=== PATIENT | female | born 1990 | race Caucasian/White ===

== ENCOUNTER 2018-04-28 21:53 | Emergency (ER) | payer OTHER ==
[~2018-04-28] VITALS: Ht 160 cm; Wt 54.4 kg
[~2018-04-28 21:53] MED LIST: ALBU0.0912 IH
[2018-04-28 22:01] VITALS: BP 146/96
--- NOTE | 2018-04-28 22:10 | NUR ---
Karina frost in ED - 04/28/18 at 2219 by [email or web address] pt triaged and sent to matilda meneses at this time, urine cup provided.
[2018-04-28 22:14] VITALS: BP 140/86
--- NOTE | 2018-04-28 22:16 | NUR ---
TO LOBBY A/W BED, TONY AGUIRRE NOTED
--- NOTE | 2018-04-28 23:21 | NUR ---
MOTHER AMBULATED TO BED 11 WITH VSS.
--- NOTE | 2018-04-28 23:21 | NUR ---
PT PRESENTS TO ED WITH C/O RASH OVER FACE, NECK, TRUNK, BILAT UPPER EXTREMITIES, AND GROIN. MULTIPLE RED SCABBED RAISED AREAS. NO DRAINAGE. NO PAIN. AFEBRILE. VSS. C/O SEVERE ITCHING. NO KNOWN CONTACT WITH ALLERGENS. ER MD AWARE. CONTINUE TO MONITOR.
[2018-04-29] MEDS ORDERED: diphenhydrAMINE 50 MG CAP PO ONE (00:10)
[2018-04-29 01:14] VITALS: BP 130/72
--- NOTE | 2018-04-29 01:19 | NUR ---
Patient discharged with v/s stable. Written and verbal after care instructions given and explained. Patient alert, oriented and verbalized understanding of instructions. Ambulatory with steady gait. All questions addressed prior to discharge. ID band removed. Patient advised to follow up with PMD. Rx of BENADRYL given. Patient educated on indication of medication including possible reaction and side effects. Opportunity to ask questions provided and answered.
== END 2018-04-29 01:14 | disposition home or self-care (01) ==
LOC: MED 21:53
DX: R21 Rash and other nonspecific skin eruption (principal); J45.909 Unspecified asthma, uncomplicated; Z88.5 Allergy status to narcotic agent; Z79.899 Other long term (current) drug therapy
CPT/HCPCS: 99283; Q0163

== ENCOUNTER 2018-10-27 07:50 | Emergency (ER) | payer OTHER ==
[~2018-10-27] VITALS: Ht 160 cm; Wt 52.2 kg
[2018-10-27 07:54] VITALS: BP 116/92
[2018-10-27 08:46] VITALS: BP 116/92
== END 2018-10-27 08:45 | disposition home or self-care (01) ==
LOC: MED 07:50
DX: L03.116 Cellulitis of left lower limb (principal); J45.909 Unspecified asthma, uncomplicated; Z88.5 Allergy status to narcotic agent; Z79.899 Other long term (current) drug therapy
CPT/HCPCS: 99283

== ENCOUNTER 2018-10-29 03:57 | Emergency (ER) | payer OTHER ==
[~2018-10-29] VITALS: Ht 162.6 cm; Wt 52.2 kg
[2018-10-29 04:04] VITALS: BP 139/101
--- NOTE | 2018-10-29 04:08 | NUR ---
PT AMBULATED TO BED 4.
--- NOTE | 2018-10-29 04:16 | NUR ---
PT C/O LT LEG PAIN AFTER SPIDER BITE. CELLULITIS ON LT LEG W/ YELLOW PUS. /10 ACHING PAIN TO TOUCH. +CMS. PT WAS SEEN ON 10/27 FOR SPIDER BITE AND GIVEN KEFLEX. STATES SHE SQUEEZED THE BITE AND AN ABUNDANCE OF WHITE PUS CAME OUT. RR EVEN AND UNLABORED. PT CALM AND PLEASANT IN ROOM SITTING ON BED. MEDHX: ASTHMA ALLERGIES: CODEINE
[2018-10-29] MEDS ORDERED: IBUPROFEN 800 MG TAB PO ONE (04:40)
[2018-10-29] MEDS ORDERED: SULFAMETH/TRIMETH DS 800/160MG 1 TAB PO ONE (04:40)
--- NOTE | 2018-10-29 04:56 | NUR ---
PT RESTING IN BED, VSS AT THIS TIME
--- NOTE | 2018-10-29 05:06 | NUR ---
Patient discharged with v/s stable. Written and verbal after care instructions given and explained. Patient alert, oriented and verbalized understanding of instructions. Ambulatory with to home. All questions addressed prior to discharge. ID band removed. Patient advised to follow up with PMD. Rx of MOTRIN 800 MG AND BACTRIM 160 MG PO given. Patient educated on indication of medication including possible reaction and side effects. Opportunity to ask questions provided and answered. 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
[2018-10-29 05:07] VITALS: BP 139/101
== END 2018-10-29 05:06 | disposition home or self-care (01) ==
LOC: MED 03:57
DX: S80.862A Insect bite (nonvenomous), left lower leg, initial encounter (principal); L03.116 Cellulitis of left lower limb; R03.0 Elevated blood-pressure reading, without diagnosis of hypertension; J45.909 Unspecified asthma, uncomplicated; Z88.5 Allergy status to narcotic agent; Z79.899 Other long term (current) drug therapy; W57.XXXA Bitten or stung by nonvenomous insect and other nonvenomous arthropods, initial encounter; Y93.89 Activity, other specified; Y92.89 Other specified places as the place of occurrence of the external cause; Y99.8 Other external cause status
CPT/HCPCS: 99283

== ENCOUNTER 2019-02-25 12:39 | Emergency (ER) | payer OTHER ==
[~2019-02-25] VITALS: Ht 160 cm; Wt 49.9 kg
--- NOTE | 2019-02-25 12:43 | NUR ---
pt ambulated to bed 07
[2019-02-25] MEDS ORDERED: ALBUTEROL SULFATE/IPRATROPIU 3 ML SOL IH ONE (12:45)
[2019-02-25 12:46] VITALS: BP 109/71
--- NOTE | 2019-02-25 12:48 | NUR ---
28/F TO ED WITH SOB SUDDEN ONSET LAST NIGHT. PT REPORTS USING LAST BIT OF VENTOLIN INHALER WITH MINIMAL RELIEF. WHEEZES HEARD BILATERALLY INSIPIRATORY AND EXPIRATORY. DR DE SOUZA AWARE. VERBAL ORDER FOR BREATHING TX RECD.
[2019-02-25] MEDS ORDERED: predniSONE 20 MG TAB PO ONE (13:15)
--- NOTE | 2019-02-25 13:25 | NUR ---
PT REPORTS RELIEF AFTER BREATHING TX.
[2019-02-25 13:38] VITALS: BP 124/77
--- NOTE | 2019-02-25 13:38 | NUR ---
Patient discharged with v/s stable. Written and verbal after care instructions given and explained. Patient alert, oriented and verbalized understanding of instructions. Ambulatory with steady gait. All questions addressed prior to discharge. ID band removed. Patient advised to follow up with PMD. Rx of Albuterol and Prednisone given. Patient educated on indication of medication including possible reaction and side effects. Opportunity to ask questions provided and answered.
== END 2019-02-25 13:38 | disposition home or self-care (01) ==
LOC: MED 12:39
DX: J45.901 Unspecified asthma with (acute) exacerbation (principal); Z88.5 Allergy status to narcotic agent; Z79.899 Other long term (current) drug therapy
CPT/HCPCS: 94640; 99283; J7620

== ENCOUNTER 2019-03-15 11:37 | Emergency (ER) | payer OTHER ==
[~2019-03-15] VITALS: Ht 157.5 cm; Wt 55.8 kg
[2019-03-15 11:46] VITALS: BP 148/86
[2019-03-15] MEDS ORDERED: hydrOXYzine HCL 25 MG TAB PO ONE (12:25)
[2019-03-15] MEDS ORDERED: DEXAMETHASONE 10 MG/ML VIAL IM ONE (12:25)
--- NOTE | 2019-03-15 12:50 | NUR ---
PT C/O MILD RT EYE PAIN AFTER ACCIDENTLY GETTING ANTI-ITCH CREAM INTO EYE. ECZEMA NOTICED ALL OVER THE BODY. PATIENT STATES PAIN OF 1/10 AT THIS TIME; VSS; PATIENT POSITIONED FOR COMFORT; HOB ELEVATED; BEDRAILS UP X1; BED DOWN. ER MD MADE AWARE OF PT STATUS.
--- NOTE | 2019-03-15 14:03 | NUR ---
PT STATES 0/10 PAIN, NADR
[2019-03-15 14:05] VITALS: BP 134/79
--- NOTE | 2019-03-15 14:05 | NUR ---
Patient discharged with v/s stable. Written and verbal after care instructions given and explained. Patient alert, oriented and verbalized understanding of instructions. Ambulatory with steady gait. All questions addressed prior to discharge. ID band removed. Patient advised to follow up with PMD. Rx of PREDNISONE AND ATARAX given. Patient educated on indication of medication including possible reaction and side effects. Opportunity to ask questions provided and answered. PT GIVEN EXCUSE FOR WORK THROUGH MAR 17 2019
== END 2019-03-15 14:05 | disposition home or self-care (01) ==
LOC: MED 11:37
DX: L98.9 Disorder of the skin and subcutaneous tissue, unspecified (principal); H57.11 Ocular pain, right eye; J45.909 Unspecified asthma, uncomplicated; Z79.899 Other long term (current) drug therapy; Z88.5 Allergy status to narcotic agent
CPT/HCPCS: 96372; 99283; J1100

== ENCOUNTER 2020-06-11 12:07 | Emergency (ER) | payer OTHER ==
[~2020-06-11] VITALS: Ht 160 cm; Wt 52.2 kg
[2020-06-11 12:15] VITALS: BP 118/71
--- NOTE | 2020-06-11 12:30 | NUR ---
29 Y/O M BIB SELF FROM HOME, PT PRESENTS TO ED WITH BILATERAL HAND RASH/PALE/BUMPS AFTER PUTTING ON GLOVES AT WORK TODAY. PT UNSURE IF SHE HAS LATEX ALLERGY. PT HAS APPOINTMENT WITH PCP TOMORROW, BUT WAS SEEN AT [facility]RG[facility] FOR SAME ISSUE AND WAS INSTRUCTED TO COME HERE. DENIES N/V/D; SKIN IS PALE, WITH REDNESS IN SOME AREAS, BUMPS ON BILATERAL HANDS. AAOX4 WITH EVEN AND STEADY GAIT; LUNGS CLEAR BL; HR EVEN AND REGULAR; PT DENIES ANY FEVER, CP, SOB, OR COUGH AT THIS TIME; PATIENT STATES PAIN OF 0/10 AT THIS TIME; VSS; PATIENT POSITIONED FOR COMFORT; HOB ELEVATED; BEDRAILS UP X2; BED DOWN. ER MD MADE AWARE OF PT STATUS. PMH: ECZEMA, ASTHMA MED: BENADRYL, VENOLIN ALLERGY: CODEINE, POSSIBLE LATEX
[2020-06-11] MEDS ORDERED: ACETAMINOPHEN EXTRA STRENGTH 500 MG TAB PO ONE (12:55)
[2020-06-11 14:40] VITALS: BP 118/71
[2020-06-11] MEDS ORDERED: CLIN-178 PO (14:40)
[2020-06-11] MEDS ORDERED: ELIMC TP (14:42)
--- NOTE | 2020-06-11 14:42 | NUR ---
Patient does not wish to proceed with medical care recommended by EVER WHITNEY. Patient given information related to possible complications, up to and including , which could occur as a result of leaving hospital at this time. Patient verbalizes understanding of risks involved leaving against medical advice. Patient has signed AMA form.
== END 2020-06-11 14:42 | disposition left against medical advice (07) ==
LOC: MED 12:07
DX: R21 Rash and other nonspecific skin eruption (principal); J45.909 Unspecified asthma, uncomplicated; Z79.899 Other long term (current) drug therapy; Z88.5 Allergy status to narcotic agent; Z98.890 Other specified postprocedural states
CPT/HCPCS: 99283; Q0163

== ENCOUNTER 2020-09-07 14:06 | Emergency (ER) | payer OTHER ==
[~2020-09-07] VITALS: Ht 160 cm; Wt 49.9 kg
[~2020-09-07 14:06] MED LIST changes: +CLIN-178 PO; +ELIMC TP
[2020-09-07 14:35] VITALS: BP 132/85
--- NOTE | 2020-09-07 14:46 | NUR ---
Patient to lobby for open available bed.
[2020-09-07] MEDS ORDERED: HYD1C TP (15:24)
[2020-09-07] MEDS ORDERED: CEPH-588 PO (15:24)
--- NOTE | 2020-09-07 15:25 | NUR ---
No nursing interventions rendered.
--- NOTE | 2020-09-07 15:30 | NUR ---
Patient discharged with v/s stable. Written and verbal after care instructions given and explained. Patient alert, oriented and verbalized understanding of instructions. Ambulatory with steady gait. All questions addressed prior to discharge. ID band removed. Patient advised to follow up with PMD. Rx of Cephalexin and Hydrocortisone cream given. Patient educated on indication of medication including possible reaction and side effects. Opportunity to ask questions provided and answered.
== END 2020-09-07 15:30 | disposition home or self-care (01) ==
LOC: MED 14:06
DX: L20.9 Atopic dermatitis, unspecified (principal); L03.115 Cellulitis of right lower limb
CPT/HCPCS: 99281; 99283

== ENCOUNTER 2020-09-27 15:23 | Emergency (ER) | payer OTHER ==
[~2020-09-27] VITALS: Ht 160 cm; Wt 49.9 kg
[~2020-09-27 15:23] MED LIST changes: +CEPH-588 PO; -CLIN-178 PO; +CLIN300C52 PO; +HYD1C TP
[2020-09-27 15:29] VITALS: BP 139/74
--- NOTE | 2020-09-27 15:34 | NUR ---
PT TO LOBBY.
[2020-09-27] MEDS ORDERED: KEN.1O TP (15:52)
[2020-09-27] MEDS ORDERED: DIPH25TA53 PO (15:52)
--- NOTE | 2020-09-27 16:10 | NUR ---
Patient discharged with v/s stable. Written and verbal after care instructions given and explained. Patient alert, oriented and verbalized understanding of instructions. Ambulatory with steady gait. All questions addressed prior to discharge. ID band removed. Patient advised to follow up with PMD. Rx of Benadry and Kenalog given. Patient educated on indication of medication including possible reaction and side effects. Opportunity to ask questions provided and answered.
== END 2020-09-27 16:10 | disposition home or self-care (01) ==
LOC: MED 15:23
DX: R21 Rash and other nonspecific skin eruption (principal); J45.909 Unspecified asthma, uncomplicated; Z88.5 Allergy status to narcotic agent; Z79.899 Other long term (current) drug therapy
CPT/HCPCS: 99283

== ENCOUNTER 2020-11-05 08:16 | Emergency (ER) | payer OTHER ==
[~2020-11-05] VITALS: Ht 160 cm; Wt 54.4 kg
[~2020-11-05 08:16] MED LIST changes: +DIPH25TA53 PO; +KEN.1O TP
[2020-11-05 08:24] VITALS: BP 155/113
[2020-11-05] MEDS ORDERED: NAPR-1704 PO (09:44)
[2020-11-05] MEDS ORDERED: CLIN300C2 PO (09:44)
[2020-11-05 10:03] VITALS: BP 139/94
== END 2020-11-05 10:03 | disposition home or self-care (01) ==
LOC: MED 08:16
DX: K04.7 Periapical abscess without sinus (principal); L03.211 Cellulitis of face; I10 Essential (primary) hypertension; J45.909 Unspecified asthma, uncomplicated; Z79.1 Long term (current) use of non-steroidal anti-inflammatories (NSAID); Z79.2 Long term (current) use of antibiotics; Z79.899 Other long term (current) drug therapy; Z79.51 Long term (current) use of inhaled steroids; Z88.5 Allergy status to narcotic agent
CPT/HCPCS: 99283

== ENCOUNTER 2021-03-07 13:20 | Emergency (ER) | payer OTHER, SELFPAY ==
[~2021-03-07] VITALS: Ht 162.6 cm; Wt 58.1 kg
[~2021-03-07 13:20] MED LIST changes: +CLIN300C2 PO; +NAPR-1704 PO
[2021-03-07 13:56] VITALS: BP 119/70
--- NOTE | 2021-03-07 14:00 | NUR ---
TENT 1.
--- NOTE | 2021-03-07 14:08 | NUR ---
BIB SELF C/O COUGH, SORE THROAT,SULTANA X 2 DAYS. PMH: ASTHMA
[2021-03-07] MEDS ORDERED: ACETAMINOPHEN EXTRA STRENGTH 500 MG TAB PO ONE (14:15)
--- NOTE | 2021-03-07 14:16 | NUR ---
COVID PCR SWAB DONE.
[2021-03-07] MEDS ORDERED: ALBU0.0912 IH (14:22)
[2021-03-07] MEDS ORDERED: PROM118S5 PO (14:22)
[2021-03-07] MEDS ORDERED: PRED20TA5 PO (14:22)
[2021-03-07] MEDS ORDERED: ACET-10509 PO (14:22)
[2021-03-07 15:10] VITALS: BP 119/70
--- NOTE | 2021-03-07 15:10 | NUR ---
Patient discharged with v/s stable. Written and verbal after care instructions given and explained. Patient alert, oriented and verbalized understanding of instructions. Ambulatory with steady gait. All questions addressed prior to discharge. ID band removed. Patient advised to follow up with PMD. Rx of TYLENOL, ALBUTEROL, PREDNISONE given. Patient educated on indication of medication including possible reaction and side effects. Opportunity to ask questions provided and answered.
== END 2021-03-07 15:10 | disposition home or self-care (01) ==
LOC: MED 13:20
DX: U07.1 COVID-19 (principal); J45.909 Unspecified asthma, uncomplicated; Z88.5 Allergy status to narcotic agent
CPT/HCPCS: 99283; U0003

== ENCOUNTER 2021-07-03 06:25 | Emergency (ER) | payer OTHER ==
[~2021-07-03] VITALS: Ht 160 cm; Wt 52.2 kg
[~2021-07-03 06:25] MED LIST changes: +ACET-10509 PO; +PRED20TA5 PO; +PROM118S5 PO
[2021-07-03 06:33] VITALS: BP 120/90
--- NOTE | 2021-07-03 07:10 | NUR ---
Karina frost in [facility] - 07/03/21 at 0726 by MARIAH Md murphy at bedside
[2021-07-03] MEDS ORDERED: DIPH25TA53 PO (07:11)
[2021-07-03] MEDS ORDERED: HYD1C TP (07:11)
[2021-07-03] MEDS ORDERED: ALBU0.0912 INH (07:11)
--- NOTE | 2021-07-03 07:18 | NUR ---
no nursing interventions needed at this time.
--- NOTE | 2021-07-03 07:29 | NUR ---
Patient discharged with v/s stable. Written and verbal after care instructions given and explained. Patient alert, oriented and verbalized understanding of instructions. Ambulatory with steady gait. All questions addressed prior to discharge. ID band removed. Patient advised to follow up with PMD. Rx of Albuterol, benadryl, and Hydrocortisone given.
--- NOTE | 2021-07-03 07:29 | NUR ---
The patient's care was reviewed and supervised by Racquel Ricardo RN.
== END 2021-07-03 07:29 | disposition home or self-care (01) ==
LOC: MED 06:25
DX: J45.909 Unspecified asthma, uncomplicated (principal); Z76.0 Encounter for issue of repeat prescription
CPT/HCPCS: 99281

== ENCOUNTER 2021-08-23 14:02 | Emergency (ER) | payer OTHER ==
[~2021-08-23] VITALS: Ht 154.9 cm; Wt 49.9 kg
[~2021-08-23 14:02] MED LIST changes: +ALBU0.0912 INH
--- NOTE | 2021-08-23 14:05 | NUR ---
Patient ambulated to bed 6.
[2021-08-23] MEDS ORDERED: ALBUTEROL SULFATE/IPRATROPIU 3 ML SOL IH ONE ×3 (14:06→14:10)
--- NOTE | 2021-08-23 14:10 | NUR ---
[facility] THERAPY (INITIATED BY RN) AND RESPIRATORY DRUGS GIVEN ORDERED ENCOURAGED PATIENT FOR INTERMITTENT DEEP BREATHING DURING THERAPY
[2021-08-23 14:11] VITALS: BP 108/79
[2021-08-23] MEDS ORDERED: methylPREDNISolone SS 60 MG in WATER STERILE 1 ML IM ONE (14:20)
[2021-08-23] MEDS ORDERED: WATER STERILE 10 ML MC ONE (14:27)
[2021-08-23] MEDS ORDERED: methylPREDNISolone SS 40 MG/ML VIAL ONE (14:27)
--- NOTE | 2021-08-23 15:20 | NUR ---
FOOD GIVEN TO PATIENT. PT SP02 96%RA
--- NOTE | 2021-08-23 15:27 | NUR ---
31YR OLD FEMALE BIB SELF C/O SOB X 2 HRS AGO. SPO2 93% RA DIMISHED LUNG SOUNDS PT UPSET AND PANIC FEELING. NEB TX STARTED RT AT BEDSIDE. PT CHILDREN ARE AT BED SIDE. PT IS SPEAKING IN FULL SENTENCES BUT IS HAVING A HARD TIME . INSTRUCTED PT NOT TO TALK TO FINISH NEB TX. PT ON BEDSIDE MONITOR. HOB ELEVATED. BED AT LOWEST LEVEL NKDA EMPHYSEMA
[2021-08-23] MEDS ORDERED: [UNRECOGNIZED DRUG - CODE] MC (15:45)
[2021-08-23] MEDS ORDERED: ALBU0.0912 IH (15:45)
[2021-08-23] MEDS ORDERED: PRED20TA5 PO (15:45)
[2021-08-23] MEDS ORDERED: PRON INH (15:45)
[2021-08-23 15:54] VITALS: BP 108/79
--- NOTE | 2021-08-23 15:54 | NUR ---
Patient discharged with v/s stable. Written and verbal after care instructions given and explained. Patient alert, oriented and verbalized understanding of instructions. Ambulatory with steady gait. All questions addressed prior to discharge. ID band removed. Patient advised to follow up with PMD. Rx of PROVENTIL HFA MDI JANINE RO given. Patient educated on indication of medication including possible reaction and side effects. Opportunity to ask questions provided and answered.
--- NOTE | 2021-08-23 15:58 | NUR ---
The patient's care was reviewed and supervised by Agency [facility] ED, RN.
== END 2021-08-23 15:54 | disposition home or self-care (01) ==
LOC: MED 14:02
DX: J45.901 Unspecified asthma with (acute) exacerbation (principal); Z79.899 Other long term (current) drug therapy; Z79.2 Long term (current) use of antibiotics; Z79.1 Long term (current) use of non-steroidal anti-inflammatories (NSAID); Z88.5 Allergy status to narcotic agent
CPT/HCPCS: 94640; 96372; 99283; J2920

== ENCOUNTER 2021-09-21 10:08 | Emergency (ER) | payer OTHER ==
[~2021-09-21] VITALS: Ht 160 cm; Wt 52.2 kg
[~2021-09-21 10:08] MED LIST changes: +PRON INH; +[UNRECOGNIZED DRUG - CODE] MC
[2021-09-21 10:20] VITALS: BP 131/96
--- NOTE | 2021-09-21 10:24 | NUR ---
PT AMBULATORY W/ STEADY GAIT TO ROOM 6
--- NOTE | 2021-09-21 10:27 | NUR ---
MD HOBBS AT BEDSIDE FOR EVALUATION
[2021-09-21] MEDS ORDERED: methylPREDNISolone SS 125 MG/2 ML VIAL IVP ONE (10:35)
[2021-09-21] MEDS ORDERED: FAMOTIDINE 20 MG/2 ML VIAL IVP ONE (10:35)
[2021-09-21] MEDS ORDERED: diphenhydrAMINE 50 MG/ML VIAL IVP ONE ×2 (10:35→11:40)
--- NOTE | 2021-09-21 10:55 | NUR ---
31YO FEMALE PT C/O RASH XYESTERDAY. 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 PT NOTES RASH STARTED IMMEDIATELY AFTER. PT PRESENTS WITH REDDENED RASH ACROSS ABDOMEN AND IN ALL EXTREMITIES. REPORTS "STINGING" ITCHYNESS THROUGHOUT BODY AND STATES NO RELIEF AFTER TAKING BENADRYL OR COLD BATHES . LAST DOSE TAKEN 30 MIN PRIOR TO ARRIVAL. DENIES SWALLOWING IMPAIREMENT, SOB, CHEST PAIN OR N/V/D. PT AAOX4, RESPIRATIONS EVEN AND UNLABORED. PT IN VISIBLE DISTRESS AND ACTIVELY SCRATCHING BODY. HX; ASTHMA, ECZEMA ALLERGIES: CODEINE.
--- NOTE | 2021-09-21 11:00 | NUR ---
PRIOR TO ADMINISTRATION OF BENADYRL, PT STATED SHE WILL HAVE SOMEONE PICK HER UP TO TAKE HER HOME.
--- NOTE | 2021-09-21 11:30 | NUR ---
PT REPORTS NO RELIEF, MADE AWARE
[2021-09-21] MEDS ORDERED: DIPHENHYDRAMINE HCL/ZINC ACET 28 GM TUBE TP STA (11:37)
--- NOTE | 2021-09-21 11:50 | NUR ---
PT REQUESTED TO CONTACT PARTNER - NUBIA . PARTNER NOTIFIED OF PT STATUS [phone]
[2021-09-21] MEDS ORDERED: FAMO-90 PO (12:30)
[2021-09-21] MEDS ORDERED: PRED20TA5 PO (12:30)
[2021-09-21] MEDS ORDERED: KEN.1C TP (12:30)
[2021-09-21 12:45] VITALS: BP 129/85
--- NOTE | 2021-09-21 12:45 | NUR ---
Patient discharged with v/s stable. Written and verbal after care instructions FOR ATOPIC DERMATITIS given and explained. Patient alert, oriented and verbalized understanding of instructions. with steady gait. All questions addressed prior to discharge. ID band removed. Patient advised to follow up with PMD. Rx of PEPCID, KENALOG AND DELTASONE given. Opportunity to ask questions provided and answered.
--- NOTE | 2021-09-21 12:46 | NUR ---
The patient's care was reviewed and supervised by Edith Portillo RN.
== END 2021-09-21 12:45 | disposition home or self-care (01) ==
LOC: MED 10:08
DX: L20.9 Atopic dermatitis, unspecified (principal); J45.909 Unspecified asthma, uncomplicated; Z88.5 Allergy status to narcotic agent; Z79.899 Other long term (current) drug therapy
CPT/HCPCS: 96374; 96375; 96376; 99284; J1200; J2930; J3490

== ENCOUNTER 2021-11-14 23:48 | Emergency (ER) | payer OTHER ==
[~2021-11-14] VITALS: Ht 154.9 cm; Wt 52.2 kg
[~2021-11-14 23:48] MED LIST changes: +FAMO-90 PO; +KEN.1C TP
[2021-11-14 23:54] VITALS: BP 137/94
--- NOTE | 2021-11-14 23:59 | NUR ---
TO LOBBY FOLLOWING TRIAGE
--- NOTE | 2021-11-15 03:55 | NUR ---
PT CALLED FROM INSIDE LOBBY AND OUTSIDE, NO RESPONSE
== END 2021-11-15 03:55 | disposition left against medical advice (07) ==
LOC: MED 23:48
DX: R21 Rash and other nonspecific skin eruption (principal); Z53.21 Procedure and treatment not carried out due to patient leaving prior to being seen by health care provider

== ENCOUNTER 2021-11-24 11:17 | Emergency (ER) | payer OTHER ==
[~2021-11-24] VITALS: Ht 142.2 cm; Wt 52.6 kg
[2021-11-24 11:36] VITALS: BP 136/87
--- NOTE | 2021-11-24 12:10 | NUR ---
sherwin alba at bedside
--- NOTE | 2021-11-24 12:10 | NUR ---
pt ambulated to bed 7
--- NOTE | 2021-11-24 12:20 | NUR ---
Female Buffer Operator accompanied female patient for ASSESSMENT
--- NOTE | 2021-11-24 12:28 | NUR ---
31YO FEMALE PT C/O R PELVIC PAIN X3DAYS. NOTES "BUMP" IN R GROIN AREA, NON TENDER TO TOUCH. STATES PAIN AT MOST ON MOVEMENT. DENIES N/V/D, CHEST PAIN OR SOB. PRESENTS WITH FLUSHED REDDENED SKIN. PT STATES SHE HAS BEEN OUT OF ECZEMA RX. PT AAOX4, RESPIRATIONS EVEN AND UNLABORED. HOB POSITIONED PER COMFORT. HX: ECZEMA, ASTHMA ALLERGIES: CODEINE
[2021-11-24] MEDS ORDERED: DIPH25TA53 PO (13:37)
[2021-11-24] MEDS ORDERED: [UNRECOGNIZED DRUG - CODE] TP (13:37)
[2021-11-24] MEDS ORDERED: IBUP-2213 PO (13:37)
[2021-11-24 14:11] VITALS: BP 136/87
--- NOTE | 2021-11-24 14:13 | NUR ---
Patient discharged with v/s stable. Written and verbal after care instructions given and explained. Patient alert, oriented and verbalized understanding of instructions. Ambulatory with to car. All questions addressed prior to discharge. ID band removed. Patient advised to follow up with PMD. Rx of BETAMETHASONE, BENADRUL AND IBUPROFEN given. Patient educated on indication of medication including possible reaction and side effects. Opportunity to ask questions provided and answered.
== END 2021-11-24 14:11 | disposition home or self-care (01) ==
LOC: MED 11:17
DX: M25.551 Pain in right hip (principal); L30.9 Dermatitis, unspecified; J45.909 Unspecified asthma, uncomplicated
CPT/HCPCS: 99284

== ENCOUNTER 2021-12-30 06:10 | Emergency (ER) | payer OTHER ==
[~2021-12-30] VITALS: Ht 154.9 cm; Wt 53.1 kg
[~2021-12-30 06:10] MED LIST changes: +IBUP-2213 PO; +[UNRECOGNIZED DRUG - CODE] TP
[2021-12-30 08:05] VITALS: BP 140/113
--- NOTE | 2021-12-30 08:30 | NUR ---
BIB SELF C/O YUAN FEET SWELLING X 2 DAYS. PMH: ASTHMA, ECZEMA
[2021-12-30] MEDS ORDERED: ALBU0.0912 IH (08:41)
[2021-12-30] MEDS ORDERED: DIPH25TA53 PO (08:41)
[2021-12-30] MEDS ORDERED: [UNRECOGNIZED DRUG - CODE] TP (08:41)
[2021-12-30 09:07] VITALS: BP 140/113
--- NOTE | 2021-12-30 09:07 | NUR ---
Patient discharged with v/s stable. Written and verbal after care instructions given and explained. Patient alert, oriented and verbalized understanding of instructions. Ambulatory with steady gait. All questions addressed prior to discharge. ID band removed. Patient advised to follow up with PMD. Rx of PROVENTIL, BETAMETHASONE, BENADRYL given. Patient educated on indication of medication including possible reaction and side effects. Opportunity to ask questions provided and answered.
== END 2021-12-30 09:07 | disposition home or self-care (01) ==
LOC: MED 06:10
DX: M79.89 Other specified soft tissue disorders (principal); L30.9 Dermatitis, unspecified; J45.909 Unspecified asthma, uncomplicated; Z76.0 Encounter for issue of repeat prescription; Z88.5 Allergy status to narcotic agent; Z79.899 Other long term (current) drug therapy
CPT/HCPCS: 99281

== ENCOUNTER 2022-01-14 23:42 | Emergency (ER) | payer OTHER ==
[~2022-01-14] VITALS: Ht 162.6 cm; Wt 52.2 kg
[2022-01-14 23:47] VITALS: BP 145/89
--- NOTE | 2022-01-14 23:51 | NUR ---
PT EVALUATED IN TRAIGE BY HÉCTOR BONE
--- NOTE | 2022-01-14 23:55 | NUR ---
PT TO BED #5
[2022-01-14] MEDS ORDERED: ALBUTEROL SULFATE/IPRATROPIU 3 ML SOL IH ONE (23:58)
[2022-01-14] MEDS ORDERED: ALBUTEROL 0.083% 2.5 MG/3 ML NEBU INH ONE (23:59)
--- NOTE | 2022-01-15 00:01 | NUR ---
RECEIVED IN BED 5 WITH C/O SOB, PMH ASTHMA. PT RAN OUT OF ALBUTEROL. AUDIBLE WHEEZING IS NOTED Alllergies- Codeine PMH- Asthma
[2022-01-15] MEDS ORDERED: ALBUTEROL 0.083% 2.5 MG/3 ML NEBU INH ONE (00:10)
[2022-01-15] MEDS ORDERED: ALBUTEROL SULFATE/IPRATROPIU 3 ML SOL IH ONE (00:10)
[2022-01-15] MEDS ORDERED: predniSONE 20 MG TAB PO ONE (00:10)
[2022-01-15] MEDS ORDERED: ALBU0.0912 IH (00:26)
[2022-01-15] MEDS ORDERED: PRON INH (00:26)
[2022-01-15] MEDS ORDERED: PRED20TA5 PO (00:26)
== END 2022-01-15 00:35 | disposition home or self-care (01) ==
LOC: MED 23:42
DX: J45.901 Unspecified asthma with (acute) exacerbation (principal); Z76.0 Encounter for issue of repeat prescription; Z88.5 Allergy status to narcotic agent; Z79.899 Other long term (current) drug therapy
CPT/HCPCS: 94640; 99283; J7512; J7613; 99281

== ENCOUNTER 2022-03-23 18:51 | Emergency (ER) | payer OTHER ==
[~2022-03-23] VITALS: Ht 160 cm; Wt 52.2 kg
[2022-03-23 19:01] VITALS: BP 156/92
[2022-03-23] MEDS ORDERED: BETA0.0521 TP (20:20)
[2022-03-23] MEDS ORDERED: DIPH25TA53 PO (20:20)
[2022-03-23 20:23] VITALS: BP 145/82
--- NOTE | 2022-03-23 20:35 | NUR ---
Patient discharged with v/s stable. Written and verbal after care instructions given and explained. Patient alert, oriented and verbalized understanding of instructions. Ambulatory with to car. All questions addressed prior to discharge. ID band removed. Patient advised to follow up with PMD. Rx of benadryl/betamethasone dipropionate given. Patient educated on indication of medication including possible reaction and side effects. Opportunity to ask questions provided and answered.
== END 2022-03-23 20:35 | disposition home or self-care (01) ==
LOC: MED 18:51
DX: L30.9 Dermatitis, unspecified (principal); R21 Rash and other nonspecific skin eruption; R03.0 Elevated blood-pressure reading, without diagnosis of hypertension; J45.909 Unspecified asthma, uncomplicated; Z88.5 Allergy status to narcotic agent; Z79.899 Other long term (current) drug therapy
CPT/HCPCS: 99283

== ENCOUNTER 2022-05-21 10:06 | Emergency (ER) | payer OTHER ==
[~2022-05-21] VITALS: Ht 160 cm; Wt 52.2 kg
[~2022-05-21 10:06] MED LIST changes: +BETA0.0521 TP
[2022-05-21 10:18] VITALS: BP 140/73
--- NOTE | 2022-05-21 10:20 | NUR ---
31/F WALKED IN C/O LEFT EAR PAIN AND SWELLING ONSET 6 DAYS AGO. REPORTS MILD DISCHARGE FROM EAR. DENIES HEARING LOSS. PMH: ASTHMA, ECZEMA
[2022-05-21] MEDS ORDERED: CIPR250T6 PO (12:02)
== END 2022-05-21 12:15 | disposition home or self-care (01) ==
LOC: MED 10:06
DX: H61.012 Acute perichondritis of left external ear (principal); J45.909 Unspecified asthma, uncomplicated; Z79.899 Other long term (current) drug therapy; Z79.2 Long term (current) use of antibiotics; Z79.1 Long term (current) use of non-steroidal anti-inflammatories (NSAID); Z88.5 Allergy status to narcotic agent
CPT/HCPCS: 99283

== ENCOUNTER 2022-06-23 12:16 | Emergency (ER) | payer OTHER ==
[~2022-06-23 12:16] MED LIST changes: +CIPR250T6 PO
--- NOTE | 2022-06-23 13:55 | NUR ---
PT. NOT FOUND IN LOBBY. PT. DID NOT ANSWER TO HIS NAME
--- NOTE | 2022-06-23 14:30 | NUR ---
Pt. called in ER lobby and no answer received. Called pt.'s name outside ER and no answer received. Checked bathroom and pt. was not found. Pt. left ER without triage. ER MD notified.
== END 2022-06-23 13:55 | disposition left against medical advice (07) ==
LOC: MED 12:16
DX: R21 Rash and other nonspecific skin eruption (principal); Z53.21 Procedure and treatment not carried out due to patient leaving prior to being seen by health care provider

== ENCOUNTER 2022-07-04 16:37 | Emergency (ER) | payer OTHER ==
[~2022-07-04] VITALS: Ht 160 cm; Wt 52.2 kg
[2022-07-04 16:55] VITALS: BP 130/85
--- NOTE | 2022-07-04 17:00 | NUR ---
32 Y/O FEMALE BIB SELF, C/O BL ANKLE RASH AND ITCHING FOR 2 WEEKS. PT STATES SHE HAS HX OF ECZEMA AND STATES RASH MAY IN BE RELATION TO IT. DENIES ANY RECENT INJURY TO SITES. 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 PT HAS BEEN DOING OATMEAL SOAKS AT HOME, MILD RELIEF AT THIS TIME. PAIN INCREASES WITH AMBULATION. PMH: ASTHMA, ECZEMA ALLERGY: CODEINE
[2022-07-04] MEDS ORDERED: BACITRACIN OINT 500 UNITS/GM PKT TP ONE (17:45)
[2022-07-04] MEDS ORDERED: LORA10TA19 PO (17:57)
[2022-07-04] MEDS ORDERED: HYD2.5O TP (17:57)
--- NOTE | 2022-07-04 18:00 | NUR ---
pt stated she felt " self conscious " and did not want care to be provided
[2022-07-04] MEDS ORDERED: BACI-416 TP (18:17)
--- NOTE | 2022-07-04 18:22 | NUR ---
Patient discharged with v/s stable. Written and verbal after care instructions FOR ECZEMA given and explained. Patient alert, oriented and verbalized understanding of instructions. Wheel Chair Assisted with to car. All questions addressed prior to discharge. ID band removed. Patient advised to follow up with PMD. Rx of CLARITIN AND HYDROCORTISONE 2.5% given. Opportunity to ask questions provided and answered.
--- NOTE | 2022-07-04 18:23 | NUR ---
The patient's care was reviewed and supervised by Mena Cordero, RN, RN.
== END 2022-07-04 18:22 | disposition home or self-care (01) ==
LOC: MED 16:37
DX: L30.9 Dermatitis, unspecified (principal); J45.909 Unspecified asthma, uncomplicated; Z79.899 Other long term (current) drug therapy; Z79.1 Long term (current) use of non-steroidal anti-inflammatories (NSAID); Z79.2 Long term (current) use of antibiotics; Z88.5 Allergy status to narcotic agent
CPT/HCPCS: 99282

== ENCOUNTER 2022-07-26 06:26 | Emergency (ER) | payer OTHER ==
[~2022-07-26] VITALS: Ht 162.6 cm; Wt 68.0 kg
[~2022-07-26 06:26] MED LIST changes: +BACI-416 TP; +HYD2.5O TP; +LORA10TA19 PO
[2022-07-26 06:27] VITALS: BP 151/85
--- NOTE | 2022-07-26 06:27 | NUR ---
PT TO BED #3
[2022-07-26] MEDS ORDERED: ALBUTEROL SULFATE/IPRATROPIU 3 ML SOL IH ONE (06:30)
[2022-07-26] MEDS ORDERED: predniSONE 20 MG TAB PO ONE (06:30)
--- NOTE | 2022-07-26 06:35 | NUR ---
RT at the bedside.
--- NOTE | 2022-07-26 07:26 | NUR ---
REPORT RECEIVED FROM [facility] MAIN. ASSUMED CARE AT THIS TIME
--- NOTE | 2022-07-26 07:26 | NUR ---
REPORT RECEIVED FROM [facility] MAIN. ASSUMED CARE AT THIS TIME
--- NOTE | 2022-07-26 07:30 | NUR ---
pt awake and at rest w/ eyes closed. respirations even and unlabored. on cardiac montior
[2022-07-26] MEDS ORDERED: PRON INH (08:27)
[2022-07-26] MEDS ORDERED: PRED20TA5 PO (08:27)
[2022-07-26] MEDS ORDERED: ALBU0.0912 INH (08:27)
[2022-07-26 08:48] VITALS: BP 135/85
--- NOTE | 2022-07-26 08:48 | NUR ---
Patient discharged with v/s stable. Written and verbal after care instructions FOR ASTHMA given and explained. Patient alert, oriented and verbalized understanding of instructions. Ambulatory with steady gait. All questions addressed prior to discharge. ID band removed. Patient advised to follow up with PMD. Rx of PREDNISONE, ALBUTEROL SULFATE given. Opportunity to ask questions provided and answered. WORK NOTE PROVIDED
--- NOTE | 2022-07-26 09:00 | NUR ---
The patient's care was reviewed and supervised by ED Agency Nurse 9, RN, RN.
== END 2022-07-26 08:28 | disposition home or self-care (01) ==
LOC: MED 06:26
DX: J98.01 Acute bronchospasm (principal); Z88.5 Allergy status to narcotic agent; Z79.899 Other long term (current) drug therapy
CPT/HCPCS: 94640; 94760; 99283; J7512

== ENCOUNTER 2022-09-24 05:35 | Emergency (ER) | payer OTHER ==
[~2022-09-24] VITALS: Ht 157.5 cm; Wt 57.6 kg
[~2022-09-24 05:35] MED LIST changes: -BACI-416 TP; +BACI-418 TP
[2022-09-24] MEDS ORDERED: ALBUTEROL 0.083% 2.5 MG/3 ML NEBU INH ONE ×3 (05:37→05:50)
[2022-09-24 05:40] VITALS: BP 122/79; PULSE 110; RESP 30; TEMP 96.8; O2SAT 100
[2022-09-24] MEDS ORDERED: methylPREDNISolone SS 125 MG in WATER STERILE 2 ML IM ONE (05:45)
[2022-09-24] MEDS ORDERED: ALBUTEROL SULFATE/IPRATROPIU 3 ML SOL IH ONE (05:45)
[2022-09-24] MEDS ORDERED: WATER STERILE 10 ML MC ONE (05:46)
[2022-09-24] MEDS ORDERED: methylPREDNISolone SS 125 MG/2 ML VIAL ONE (05:46)
[2022-09-24 05:56] VITALS: PULSE 95; RESP 38; O2SAT 86
[2022-09-24] MEDS ORDERED: PRED20TA5 PO (06:34)
[2022-09-24] MEDS ORDERED: ALBU0.0912 IH (06:34)
== END 2022-09-24 07:11 | disposition home or self-care (01) ==
LOC: MED 05:35
DX: J45.901 Unspecified asthma with (acute) exacerbation (principal); Z88.5 Allergy status to narcotic agent; Z79.899 Other long term (current) drug therapy
CPT/HCPCS: 71045; 94640; 96372; 99283; J2930; J7613; Q0092

== ENCOUNTER 2022-10-18 13:24 | Emergency (ER) | payer OTHER ==
[~2022-10-18] VITALS: Ht 152.4 cm; Wt 55.3 kg
[2022-10-18 13:34] VITALS: BP 112/90; PULSE 100; RESP 17; TEMP 97.4; O2SAT 98
[2022-10-18] MEDS ORDERED: ALBU0.0912 IH (14:04)
[2022-10-18] MEDS ORDERED: HYD2.5O TP (14:04)
== END 2022-10-18 14:13 | disposition home or self-care (01) ==
LOC: MED 13:24
DX: L30.9 Dermatitis, unspecified (principal); J45.909 Unspecified asthma, uncomplicated; Z76.0 Encounter for issue of repeat prescription; Z88.5 Allergy status to narcotic agent; Z79.899 Other long term (current) drug therapy
CPT/HCPCS: 99281

== ENCOUNTER 2022-11-19 14:48 | Emergency (ER) | payer OTHER ==
[~2022-11-19] VITALS: Ht 157.5 cm; Wt 54.4 kg
[2022-11-19 15:20] VITALS: BP 152/118; PULSE 112; RESP 20; TEMP 97; O2SAT 98
[2022-11-19] MEDS ORDERED: DIPRC TP (15:59)
[2022-11-19] MEDS ORDERED: ALBU0.0912 IH (15:59)
[2022-11-19] MEDS ORDERED: DIPH25TA53 PO (15:59)
== END 2022-11-19 16:18 | disposition home or self-care (01) ==
LOC: MED 14:48
DX: L30.9 Dermatitis, unspecified (principal); R03.0 Elevated blood-pressure reading, without diagnosis of hypertension; J45.909 Unspecified asthma, uncomplicated; Z79.899 Other long term (current) drug therapy; Z79.1 Long term (current) use of non-steroidal anti-inflammatories (NSAID); Z79.2 Long term (current) use of antibiotics; Z88.5 Allergy status to narcotic agent
CPT/HCPCS: 99283

== ENCOUNTER 2023-01-10 22:55 | Emergency (ER) | payer OTHER ==
[~2023-01-10] VITALS: Ht 160 cm; Wt 50.3 kg
[~2023-01-10 22:55] MED LIST changes: +DIPRC TP
[2023-01-10 23:02] VITALS: BP 134/84; PULSE 110; RESP 24; TEMP 97.4; O2SAT 96
[2023-01-10] MEDS ORDERED: predniSONE 20 MG TAB PO ONE (23:05)
[2023-01-10] MEDS ORDERED: ALBUTEROL SULFATE/IPRATROPIU 3 ML SOL IH ONE (23:05)
[2023-01-10] MEDS ORDERED: ALBUTEROL 0.083% 2.5 MG/3 ML NEBU INH ONE (23:05)
[2023-01-10 23:06] VITALS: PULSE 96; RESP 18; O2SAT 99
[2023-01-11] MEDS ORDERED: PRON INH (00:44)
[2023-01-11] MEDS ORDERED: PRED50TA2 PO (00:44)
[2023-01-11] MEDS ORDERED: ALBU0.0912 INH (00:44)
== END 2023-01-11 00:50 | disposition home or self-care (01) ==
LOC: MED 22:55
DX: J45.901 Unspecified asthma with (acute) exacerbation (principal); Z88.5 Allergy status to narcotic agent; Z79.899 Other long term (current) drug therapy
CPT/HCPCS: 94640; 99283; J7512; J7613

== ENCOUNTER 2023-01-21 09:22 | Emergency (ER) | payer OTHER ==
[~2023-01-21] VITALS: Ht 166.9 cm; Wt 51.7 kg
[~2023-01-21 09:22] MED LIST changes: +PRED50TA2 PO
[2023-01-21 09:44] VITALS: BP 131/92; PULSE 89; RESP 18; TEMP 97.5; O2SAT 99
[2023-01-21 10:57] VITALS: BP 131/92; PULSE 89; RESP 18; TEMP 97.5; O2SAT 99
[2023-01-21 11:33] LABS: FLU A ANTIGEN negative (NEGATIVE); FLU B ANTIGEN negative (NEGATIVE)
[2023-01-21] MEDS ORDERED: TAM75 PO (12:23)
== END 2023-01-21 10:56 | disposition home or self-care (01) ==
LOC: MED 09:22
DX: J06.9 Acute upper respiratory infection, unspecified (principal); Z20.822 Contact with and (suspected) exposure to COVID-19; J45.909 Unspecified asthma, uncomplicated; Z79.899 Other long term (current) drug therapy; Z79.2 Long term (current) use of antibiotics; Z79.1 Long term (current) use of non-steroidal anti-inflammatories (NSAID); Z88.5 Allergy status to narcotic agent
CPT/HCPCS: 99283

== ENCOUNTER 2023-02-03 10:19 | Emergency (ER) | payer OTHER ==
[~2023-02-03] VITALS: Ht 157.5 cm; Wt 59.0 kg
[~2023-02-03 10:19] MED LIST changes: +TAM75 PO
[2023-02-03 10:42] VITALS: BP 108/80; PULSE 122; RESP 20; TEMP 98.5; O2SAT 98
== END 2023-02-03 12:13 | disposition left against medical advice (07) ==
LOC: MED 10:19
DX: L85.3 Xerosis cutis (principal); Z53.21 Procedure and treatment not carried out due to patient leaving prior to being seen by health care provider
CPT/HCPCS: 99281

== ENCOUNTER 2023-04-04 21:13 | Emergency (ER) | payer OTHER ==
[~2023-04-04] VITALS: Ht 162.6 cm; Wt 49.9 kg
[2023-04-04 21:21] VITALS: BP 123/98; PULSE 140; RESP 20; TEMP 97.8; O2SAT 97
[2023-04-04] MEDS ORDERED: ATA25 PO (22:54)
[2023-04-04] MEDS ORDERED: ALBU0.0912 IH (22:54)
[2023-04-04 22:56] VITALS: PULSE 112; RESP 19; O2SAT 96
[2023-04-04] MEDS ORDERED: COROTSOL OT (23:25)
[2023-04-04] MEDS ORDERED: diphenhydrAMINE 50 MG CAP PO ONE (23:27)
[2023-04-04] MEDS: diphenhydrAMINE 50 MG CAP PO ONE (23:32)
[2023-04-04] MEDS: ALBUTEROL SULFATE/IPRATROPIU 3 ML SOL IH ONE (23:34)
[2023-04-04] MEDS: ALBUTEROL 0.083% 2.5 MG/3 ML NEBU INH ONE (23:34)
[2023-04-04 23:38] VITALS: BP 123/98; PULSE 98; RESP 19; TEMP 97.8; O2SAT 98
== END 2023-04-04 23:38 | disposition home or self-care (01) ==
LOC: MED 21:13
DX: L30.9 Dermatitis, unspecified (principal); J45.909 Unspecified asthma, uncomplicated; Z79.899 Other long term (current) drug therapy; Z88.5 Allergy status to narcotic agent
CPT/HCPCS: 71045; 93005; 94640; 99283; J7613; Q0163

== ENCOUNTER 2023-04-08 14:58 | Emergency (ER) | payer OTHER ==
[~2023-04-08] VITALS: Ht 157.5 cm; Wt 52.2 kg
[~2023-04-08 14:58] MED LIST changes: +ATA25 PO; +COROTSOL OT
[2023-04-08 15:15] VITALS: BP 133/81; PULSE 109; RESP 19; TEMP 98.1; O2SAT 99
[2023-04-08] MEDS ORDERED: CEPH-588 PO (15:35)
[2023-04-08 15:39] VITALS: BP 125/82; PULSE 88; RESP 16; TEMP 98.1; O2SAT 99
== END 2023-04-08 15:39 | disposition home or self-care (01) ==
LOC: MED 14:58
DX: R22.0 Localized swelling, mass and lump, head (principal); R03.0 Elevated blood-pressure reading, without diagnosis of hypertension; J45.909 Unspecified asthma, uncomplicated; Z79.899 Other long term (current) drug therapy; Z88.5 Allergy status to narcotic agent
CPT/HCPCS: 99283

== ENCOUNTER 2023-05-14 18:15 | Emergency (ER) | payer OTHER ==
[~2023-05-14] VITALS: Ht 160 cm; Wt 52.2 kg
[2023-05-14 18:34] VITALS: BP 142/110; PULSE 101; RESP 18; TEMP 97.5; O2SAT 99
[2023-05-14] MEDS ORDERED: KEN.1C TP (18:55)
[2023-05-14] MEDS ORDERED: ALBU0.0912 IH (18:55)
[2023-05-14] MEDS ORDERED: DIPH25TA53 PO (18:55)
== END 2023-05-14 19:06 | disposition home or self-care (01) ==
LOC: MED 18:15
DX: L29.9 Pruritus, unspecified (principal); J45.909 Unspecified asthma, uncomplicated; Z79.1 Long term (current) use of non-steroidal anti-inflammatories (NSAID); Z79.899 Other long term (current) drug therapy
CPT/HCPCS: 99283

== ENCOUNTER 2023-07-21 10:32 | Emergency (ER) | payer OTHER ==
[~2023-07-21] VITALS: Ht 157.5 cm; Wt 52.2 kg
[~2023-07-21 10:32] MED LIST changes: +[UNRECOGNIZED DRUG - CODE] TP; -[UNRECOGNIZED DRUG - CODE] TP
[2023-07-21 10:57] VITALS: BP 122/91; PULSE 113; RESP 18; TEMP 98.1; O2SAT 99
[2023-07-21] MEDS: TETRACAINE HCL/PF 0.5% OPTH 4 ML BTL OP ONE (11:49)
[2023-07-21] MEDS: FLUORESCEIN OPTH STRIP 1 MG OP ONE (11:50)
[2023-07-21 12:01] VITALS: PULSE 0
== END 2023-07-21 12:01 | disposition left against medical advice (07) ==
LOC: MED 10:32
DX: H57.10 Ocular pain, unspecified eye (principal); Z53.21 Procedure and treatment not carried out due to patient leaving prior to being seen by health care provider